=== PATIENT | male | born 1965 | race Caucasian/White ===

== ENCOUNTER → 2020-07-29 13:43 | Outpatient (CLI) | payer OTHER, SELFPAY ==
--- NOTE | 2020-07-29 13:46 | DI.RAD.S_ITS ---
PROCEDURE: XR FINGER LT MIN 2V INDICATIONS: crushed finger TECHNIQUE: AP hand, 2 views of the 3rd finger(s) acquired. COMPARISON: [facility], , HAND 3V LEFT, 08/16/2017, 10:25. FINDINGS: Bones: No fractures or dislocations. No suspicious bony lesions. Flexion of fifth MCP joint. Soft tissues: No suspicious soft tissue calcifications. IMPRESSION: No visualized acute fracture or dislocation. However, if clinical concern and/or pain persist, short interval imaging followup in 7-10 days is recommended, as occult injury cannot be definitively excluded. Dictated by: Helena Reed M.D. on 07/29/2020 at 14:15 Approved by: Helena Reed M.D. on 07/29/2020 at 14:18
== END ==
PROVIDERS: Family Provider Physician Assistant Medical; PCP Physician Assistant Medical; Referring Provider Physician Assistant; Visit Provider Physician Assistant
DX: M79.645 Pain in left finger(s) (principal); S67.193A Crushing injury of left middle finger, initial encounter; X58.XXXA Exposure to other specified factors, initial encounter
CPT/HCPCS: 73140

== ENCOUNTER 2023-10-27 20:33 | Emergency (ER) | payer OTHER, SELFPAY ==
[2023-10-27 20:40] VITALS: BP 120/79; PULSE 82; RESP 16; TEMP 36.8; O2SAT 96; BMI 26.2
[2023-10-27 20:54] VITALS: BP 125/84; PULSE 84; O2SAT 95
--- NOTE | 2023-10-27 20:54 | DI.RAD.S_ITS ---
PROCEDURE: XR FOOT LT MIN 3V INDICATIONS: r/o fx TECHNIQUE: 3 views of the foot were acquired. COMPARISON: [facility], , FOOT 3V LEFT, 09/05/2014, 22:17. FINDINGS: Bones: No fractures or dislocations. No suspicious bony lesions. Soft tissues: No tibiotalar joint effusion. Achilles tendon appears normal. IMPRESSION: No acute bony abnormality. Dictated by: Aaron Giordano M.D. on 10/27/2023 at 21:27 Approved by: Aaron Giordano M.D. on 10/27/2023 at 21:28
[2023-10-27 20:55] VITALS: PULSE 78
[2023-10-27 21:00] VITALS: BP 120/87; PULSE 74; O2SAT 97
[2023-10-27 21:30] VITALS: BP 130/93; PULSE 83; O2SAT 97
--- NOTE | 2023-10-27 22:01 | ED.LOWEXIN ---
HPI - Extremity Injury (Lower) General Chief Complaint: Extremity Injury, Lower Stated Complaint: foot pain Time Seen by Provider: 10/27/23 22:00 Source: patient Mode of arrival: Ambulatory History of Present Illness HPI Narrative: Patient is a 58-year-old healthy male who presents today with left foot pain. He dropped a 60 lb bag of salt on his foot while wearing tennis shoe. He is able to ambulate but it does hurt. He has most pain over his great toe and midfoot. No obvious contusion. No other injury. Related Data Allergies Allergy/AdvReac Type Severity Reaction Status Date / Time Penicillins [PENICILLINS] Allergy Unknown Unverified 01/23/18 12:30 tetanus and diphtheria Allergy Unknown Unverified 01/23/18 12:30 toxoids [TETANUS & DIPHTHERIA TOXOIDS] Exam Initial Vital Signs Initial Vital Signs: Vital Signs Temperature 98.2 F 10/27/23 20:40 Pulse Rate 82 10/27/23 20:40 Respiratory Rate 16 10/27/23 20:40 Blood Pressure 120/79 10/27/23 20:40 Pulse Oximetry 96 10/27/23 20:40 Oxygen Delivery Method Room Air 10/27/23 20:40 GENERAL: Well-appearing, well-nourished and in no acute distress. CARDIOVASCULAR: peripheral pulses in tact, cap refill <2 sec RESPIRATORY: No respiratory distress, speaks in full sentences without difficulty EXTREMITIES: Normal range of motion, no clubbing or edema. Neurovascularly intact Left foot no significant contusion no erythema distal pedal pulse intact able to flex great toe against some full range of motion whether in her NEUROLOGICAL: Cranial nerves II through XII grossly intact. Normal gait and speech. SKIN: Warm, dry, no petechiae, no rashes or lesions. Course Orders Ordered: ED Orders 10/27/23 20:54 XR foot LT min 3V Stat Vital Signs Vital signs: Vital Signs - 8 hr 10/27/23 20:40 10/27/23 20:54 10/27/23 20:54 Temperature 98.2 F Pulse Rate 82 84 Pulse Rate [Left Dorsalis Pedis] Respiratory Rate 16 Blood Pressure 120/79 125/84 Pulse Oximetry 96 95 Oxygen Delivery Method Room Air 10/27/23 20:55 10/27/23 21:00 10/27/23 21:00 Temperature Pulse Rate 74 Pulse Rate [Left Dorsalis Pedis] 78 Respiratory Rate Blood Pressure 120/87 Pulse Oximetry 97 Oxygen Delivery Method 10/27/23 21:30 10/27/23 21:30 Temperature Pulse Rate 83 Pulse Rate [Left Dorsalis Pedis] Respiratory Rate Blood Pressure 130/93 H Pulse Oximetry 97 Oxygen Delivery Method Room Air MDM - Extremity Injury (Lower) Imaging Data Extremity x-ray #1: Radiologist's Impression: PROCEDURE: XR FOOT LT MIN 3V INDICATIONS: r/o fx TECHNIQUE: 3 views of the foot were acquired. COMPARISON: [facility], , FOOT 3V LEFT, 09/05/2014, 22:17. FINDINGS: Bones: No fractures or dislocations. No suspicious bony lesions. Soft tissues: No tibiotalar joint effusion. Achilles tendon appears normal. IMPRESSION: No acute bony abnormality. Dictated by: Aaron Giordano M.D. on 10/27/2023 at 21:27 MDM Narrative Medical decision making narrative: Patient 58-year-old male without significant past medical history presents today with left foot pain after dropping a 60 lb bag of salt on his foot. X-ray is negative for fracture. He has not needing anything for pain. Mildly tender on exam without any obvious deformity contusion or swelling. Discharge Plan Departure Patient Disposition: Home Clinical Impression: Contusion of foot, right Instructions: Contusion Activity Restrictions/Additional Instructions: *You have been diagnosed with right foot contusion *What to do: At this time foot x-ray is negative for broken bones. Elevate and ice may ambulate as tolerated *Continue to take medications as directed Motrin 600 mg every 6 hours if needed for [id number] pain Tylenol 1000 mg every 6 hours if needed for [id number] pain *Follow up with your primary care provider in 2-3 days or call [phone] *Return to ER if you should have increasing pain numbness tingling weakness or any new, worsening or concerning symptoms Referrals: Negin Stevens PA-C [Primary Care Provider] - Stand Alone Forms: Patient Portal/API
== END 2023-10-27 22:07 | disposition home or self-care (01) ==
PROVIDERS: Emergency Provider Emergency Medicine; Family Provider Physician Assistant Medical; PCP Physician Assistant Medical
DX: S90.32XA Contusion of left foot, initial encounter (principal); W22.8XXA Striking against or struck by other objects, initial encounter
CPT/HCPCS: 73630; 99283

== ENCOUNTER 2023-12-14 11:56 | Emergency (ER) | payer OTHER, SELFPAY ==
[2023-12-14 11:59] VITALS: BP 199/103; PULSE 76; RESP 18; TEMP 36.8; O2SAT 98; BMI 27.2
[2023-12-14 12:16] VITALS: PULSE 87
--- NOTE | 2023-12-14 12:16 | ED_ITS ---
<Statement entered by Sergio Dumas MD - 12/14/23 21:51> I was available for consultation for this patient while they were in the ER but not consulted. My review of this note is my first interaction with this patient's chart. HPI - Extremity Problem General Chief complaint: Extremity Problem,Nontraumatic Stated complaint: hand locked up Time Seen by Provider: 12/14/23 12:15 Source: patient Mode of arrival: Ambulatory History of Present Illness HPI Narrative: This is a 58-year-old male presents to the emergency department complaining of a worsening hand contracture of the right side. History of possible Dupuytren's contracture for which she was had surgery on the left side. He states that he is contracture is ?tightening up on the right side. States that it does feel like it has been loosening up over the last hour while he was waiting to be seen. Reports slightly increased discomfort but no significant acute pain. No new injuries to the area. It has not used any supportive measures. Does not have an established orthopedist here in [place]. Denies numbness. Related Data Allergies Allergy/AdvReac Type Severity Reaction Status Date / Time Penicillins [PENICILLINS] Allergy Unknown Unverified 01/23/18 12:30 tetanus and diphtheria Allergy Unknown Unverified 01/23/18 12:30 toxoids [TETANUS & DIPHTHERIA TOXOIDS] Review of Systems Review of Systems Narrative: GENERAL: Denies chills, fatigue, malaise, fever, sweats. HEENT: Denies sinus pain, ear pain, sore throat, difficulty swallowing, dizziness. RESPIRATORY: Denies dyspnea, cough, wheezing, hemoptysis, sputum. CARDIOVASCULAR: Denies chest pain, palpitations, orthopnea, edema, GASTROINTESTINAL: Denies nausea, vomiting, abdominal pain, diarrhea, constipation, melena. : Denies dysuria, frequency, incontinence, hematuria, urinary retention. MUSCULOSKELETAL: Reports right pinky contracture on the right side, with some discomfort SKIN: Denies rash, skin lesions, or other NEUROLOGIC: Denies weakness, headache, numbness, change in speech, confusion, seizures, incoordination. PSYCHIATRIC: No concerning psychosocial issues. 12 point review of systems is negative except for those stated above Patient History Social History Smoking Status: Never smoker Smoking Status: Never smoker alcohol intake frequency: 3 or more drinks per day Substance Use Type: does not use Exam Narrative Exam Narrative: GENERAL: Well-developed patient, in mild distress. HEAD: Atraumatic. Normocephalic. EYES: Pupils equal round and reactive. Extraocular motions intact. No scleral icterus. No injection or drainage. ENT: Nose without bleeding, purulent drainage. Throat without erythema, tonsillar hypertrophy or exudate. Airway patent. NECK: Trachea midline. Non tender EXTREMITIES: Right 5th finger is somewhat contracted. Some pain when attempting to extend. Small nodule noted at the base of the right 5th finger. Neurovascularly intact throughout. NEURO: AOx3. SKIN: No rash or erythema of visible areas Initial Vital Signs Initial Vital Signs: Vital Signs Temperature 98.2 F 12/14/23 11:59 Pulse Rate 76 12/14/23 11:59 Respiratory Rate 18 12/14/23 11:59 Blood Pressure 199/103 H 12/14/23 11:59 Pulse Oximetry 98 12/14/23 11:59 Oxygen Delivery Method Room Air 12/14/23 11:59 Course Vital Signs Vital signs: Vital Signs - 8 hr 12/14/23 11:59 12/14/23 12:16 Temperature 98.2 F Pulse Rate 76 Pulse Rate [Right Radial] 87 Respiratory Rate 18 Blood Pressure 199/103 H Pulse Oximetry 98 Oxygen Delivery Method Room Air MDM - Extremity (Nontraumatic) MDM Narrative Medical decision making narrative: ED course: This is a 58-year-old male presents to the emergency department due to reported worsening contracture of possible Dupuytren's contracture which he says he has been diagnosed with. He was neurovascularly intact throughout. States that throughout the last hour while he was waiting to be seen in the waiting room it had somewhat improved. Recommend ibuprofen and Tylenol as well as warm compresses to help relax the area a bit. He will be given follow up instructions to follow up with Orthopedics for continued care. CC: Right pinky pain Complicating co-morbidities: History of Dupuytren's contracture Data collected from: Previous notes Medical records reviewed: Patient was seen a month and a half ago due to a foot contusion. Dropped a bag of salt in his foot. Allergic to penicillin. X-ray unremarkable. Differential considered, but not limited to: Contracture Exam documented above, pertinent findings include: Neurovascularly intact Lab Test results independently reviewed as above. Pertinent findings: None obtained Imaging studies independently reviewed: None obtained Scores Used: None MIPS Elements: None Consultations: None Treatments: None Re-evaluations: None Discussion: Discussed plan with the patient was comfortable with the plan Diagnosis: Hand contracture Disposition: see below, along with detailed discharge instructions that have been reviewed with patient as well as indications for ED re-evaluation and additional outpatient follow up Discharge Plan Departure Patient Disposition: Home Clinical Impression: Contracture of hand Activity Restrictions/Additional Instructions: Thank you for coming to the [facility] Emergency Department today. Please follow up with Dr. Garcia's office for continued care. I recommend warm compresses as well as ibuprofen and Tylenol for the pain. Please return to the emergency department if you develop any significant new or worsened pain, or any other concerning signs or symptoms. I hope you feel better soon. Please follow up with your primary care provider within a week if your symptoms continue. If you do not have a primary care provider please contact the [facility] Resource line at [phone]. They will ask some questions about your medical history and help you get set up with a provider in the community. Referrals: Pro Hartley PA-C [Primary Care Provider] - Ernesto Garcia MD [Physician] - (f/u hand contracture, thank you! ) Stand Alone Forms: Patient Portal/API
[2023-12-14 13:01] VITALS: BP 171/100; PULSE 86; RESP 18; TEMP 36.7; O2SAT 98
== END 2023-12-14 13:03 | disposition home or self-care (01) ==
PROVIDERS: Emergency Provider Physician Assistant Medical; Family Provider Physician Assistant Medical; PCP Physician Assistant
DX: M24.541 Contracture, right hand (principal)
CPT/HCPCS: 99281; 99282

== ENCOUNTER → 2024-11-22 13:17 | Outpatient (CLI) | payer OTHER, SELFPAY ==
[2024-11-22 16:56] LABS: Influenza A - CEPHEID Flu A NEGATIVE (NEGATIVE); Influenza B - CEPHEID Flu B NEGATIVE (NEGATIVE); Respiratory Syncytial Virus POSITIVE (Negative)
[2024-11-22 17:08] LABS: COVID-19 CEPHEID 4-PLEX PCR Negative (Negative)
== END ==
PROVIDERS: Family Provider Physician Assistant Medical; PCP Physician Assistant Medical; Visit Provider Nurse Practitioner Family
DX: R05.9 Cough, unspecified (principal)
CPT/HCPCS: 0241U

== ENCOUNTER → 2024-11-22 13:36 | Outpatient (CLI) | payer OTHER, SELFPAY ==
--- NOTE | 2024-11-22 13:39 | DI.RAD.S_ITS ---
PROCEDURE: XR CHEST 2V INDICATIONS: Cough TECHNIQUE: 2 views of the chest were acquired. COMPARISON: None. FINDINGS: Surgical changes and devices: None. Lungs and pleura: Mildly prominent interstitium. No dense consolidation or pleural effusion. Mediastinum: Normal heart size Bones and chest wall: Degenerative changes IMPRESSION: Interstitial prominence may represent viral/atypical infection. No consolidation. No pleural effusion. Dictated by: Curly Santana M.D. on 11/22/2024 at 19:38 Approved by: Curly Santana M.D. on 11/22/2024 at 19:38
== END ==
PROVIDERS: Family Provider Physician Assistant Medical; PCP Physician Assistant Medical; Referring Provider Nurse Practitioner Family; Visit Provider Nurse Practitioner Family
DX: R05.9 Cough, unspecified (principal)
CPT/HCPCS: 0241U; 71046

== ENCOUNTER → 2025-01-28 10:50 | Outpatient (CLI) | payer OTHER, SELFPAY ==
--- NOTE | 2025-01-28 10:51 | DI.RAD.S_ITS ---
PROCEDURE: XR THORACIC SPINE 2V INDICATIONS: T1-2 pain radiating up after moving fridge 01/25 TECHNIQUE: 3 views of the thoracic spine were acquired. COMPARISON: None. FINDINGS: Bones: No fractures or dislocations. No suspicious bony lesions. 12 pairs of ribs are noted, and appear intact where visualized. Soft tissues: No paravertebral stripe thickening. IMPRESSION: No visualized acute fracture or dislocation. However, if clinical concern and/or pain persist, short interval imaging followup in 7-10 days is recommended, as occult injury cannot be definitively excluded. Dictated by: Helena Reed M.D. on 01/28/2025 at 11:12 Approved by: Helena Reed M.D. on 01/28/2025 at 11:12
== END ==
PROVIDERS: Family Provider Physician Assistant Medical; PCP Physician Assistant Medical; Referring Provider Student in an Organized Health Care Education/Training Program; Visit Provider Student in an Organized Health Care Education/Training Program
DX: S29.012A Strain of muscle and tendon of back wall of thorax, initial encounter (principal); M62.838 Other muscle spasm; M54.9 Dorsalgia, unspecified
CPT/HCPCS: 72072